=== PATIENT | male | born 1950 | race Caucasian/White ===

== ENCOUNTER → 2020-11-04 | Outpatient (CLI) | payer MEDICARE ==
[~2020-11-04] MED LIST: GADOTERATE 7.5 MMOL/15ML VIAL. IVP ONE; OMEP40CA7 PO; TAMS0.4C97 PO
--- NOTE | 2020-11-04 10:29 | KCIC ---
Examination: MRI of the left shoulder without and with IV contrast HISTORY: History of left shoulder nodule COMPARISON: None available Technique: Multiplanar, multisequence MR imaging of the left shoulder performed without and with IV c ontrast. IV contrast given was 14 cc clariscan. FINDINGS: The long head of the biceps tendon within the bicipital groove. The attachment of the long head the b iceps tendon to the superior labral anchor grossly appears intact. The attachment of the subscapulari s tendon, grossly appears intact. There is full-thickness tear of the supraspinatus tendon extension of fluid in the subacromial subdeltoid bursa. The muscle bulk grossly appears unremarkable. The visualized labrum grossly appears unremarkable There is 5.8 x 4.5 cm mass demonstrating intermediate T1 signal, high T2 signal with heterogeneous en hancement overlying the infraspinatus and teres minor muscle and medial to the deltoid muscle, best v isualized on series 5 image 20. There is mild enhancement surrounding the mass. The acromion is type II. IMPRESSION: 1. 5.8 x 4.5 cm mass overlying the infraspinatus and teres minor muscle and medial to the deltoid mu scle, best visualized on series 5 image 20 with mild enhancement surrounding the mass. Differential i ncludes soft tissue sarcoma or other soft tissue sarcoma. Tissue sampling recommended. 2. Full-thickness tear of the supraspinatus tendon with extension of fluid in the subacromial subdel toid bursa. Electronically signed by: Ashwin Montes MD (11/04/2020 10:27 AM) [id number]
== END ==
LOC: KCIC MRI 07:57
PROVIDERS: ATTEND Physician Assistant Medical
DX: M75.102 Unspecified rotator cuff tear or rupture of left shoulder, not specified as traumatic (principal); M79.89 Other specified soft tissue disorders
CPT/HCPCS: 73223; A9575